=== PATIENT | female | born 1960 | race Caucasian/White ===

== ENCOUNTER 2020-01-25 16:00 | Inpatient (IN) | payer OTHER ==
--- OUTSIDE RECORDS SUMMARY | 2020-01-25 16:03 | XMS REPORT | Clinical Summary ---
:1960 Author Organization [facility] Address [address] [place] [address] Care Team Providers Name Role Phone Asked, Pcp Primary Care Provider Unavailable Allergies Active Allergy Reactions Severity Noted Date Comments Meperidine GI Intolerance 06/12/2019 Medications Medication Sig Dispensed Refills Start Date End Date Status olmesartan (BENICAR) 40 Take 40 mg by 0 Active MG tablet mouth daily. vortioxetine Take 15 mg by 0 Act cliff (TRINTELLIX) 10 mg mouth daily. tablet vitamin E 400 UNIT Take 400 Units 0 Active capsule by mouth daily. cholecalciferol, vitamin Take 1,000 Units 0 Active D3, (VITAMIN D3) 1,000 by mouth daily. unit capsule Bifidobacterium infantis Take 1 capsule 0 Active (ALIGN ORAL) by mouth daily. Active Problems Problem Noted Date Liver lesion 06/13/2019 Encounters Date Type Specialty Care Team Description 06/13/2019 Lab Transplant Dahiana Tatum MD Liver mass 06/13/2019 Office Visit Transplant Dahiana Tatum MD Liver lesi on (Primary Dx) 06/13/2019 Hospital Encounter Radiology Hayde Delgado MD 06/13/2019 Orders Only Transplant Jayshree Hartman Liver mass (Pr imary Dx) DEANDRE Michael 06/13/2019 Orders Only Transplant Jayshree Hartman Liver mass (Pr imary Dx) DEANDRE Michael 06/12/2019 Telephone Transplant Helen Echevarria RN Referral - HCC after 01/24/2019 Social History Tobacco Use Types Packs/Day Years Used Date Never Smoker Sex Assigned at Date Recorded Not on file Job Start Date Occupation Industry Not on file Not on file Not on file Travel History Travel Start Travel End No recent travel history available. Last Filed Vital Signs Vital Sign Reading Time Taken Comments Blood Pressure 139/71 06/13/2019 1:44 PM CDT Pulse 61 06/13/2019 1:44 PM CDT Temperature 36.7 C (98.1 F) 06/13/2019 1:44 PM CDT Respiratory Rate 17 06/13/2019 1:44 PM CDT Oxygen Saturation 98% 06/13/2019 1:44 PM CDT Inhaled Oxygen Concentration - - Weight 78.5 kg (173 lb) 06/13/2019 1:44 PM CDT Height 169.2 cm (5' 6.6") 06/13/2019 1:44 PM CDT Body Mass Index 27.42 06/13/2019 1:44 PM CDT Plan of Treatment Health Maintenance Due Date Last Done Comments CERVICAL CANCER SCREENING 1979 BREAST CANCER SCREENING 2008 COLONOSCOPY SCREENING 2008 SHINGLES VACCINES (#1) 2008 INFLUENZA VACCINE 04/19/2020 Procedures Procedure Name Priority Date/Time Associated Comments Diagnosis HEPATOCELLULAR Routine 06/13/2019 3:15 Results f or this CARCINOMA MARKER PANEL PM CDT proce dure are in the results section. ESTIMATED GFR Routine 06/13/2019 3:15 Results fo r this PM CDT procedure are i n the results section. LIPASE LEVEL Routine 06/13/2019 3:15 Liver mass Results for this PM CDT procedure are i n the results section. AMYLASE LEVEL Routine 06/13/2019 3:15 Liver mass Results fo r this PM CDT procedure are i n the results section. ALPHA FETOPROTEIN Routine 06/13/2019 3:15 Liver mass Result s for this PM CDT procedure are i n the results section. GGT Routine 06/13/2019 3:15 Liver mass Results for this PM CDT procedure are i n the results section. PROTHROMBIN TIME WITH Routine 06/13/2019 3:15 Liver mass Re sults for this INR PM CDT procedure are i n the results section. MAGNESIUM LEVEL Routine 06/13/2019 3:15 Liver mass Results for this PM CDT procedure are i n the results section. COMPREHENSIVE METABOLIC Routine 06/13/2019 3:15 Liver mass Results for this PANEL PM CDT procedure are i n the results section. HC COMPLETE BLD COUNT Routine 06/13/2019 3:15 Liver mass Re sults for this W/AUTO DIFF PM CDT procedure are i n the results section. MRI ABD/PELVIC EXTERNAL Routine 06/06/2019 7:53 Results for this STUDY PM CDT procedure are i n the results section. after 01/24/2019 Results Estimated GFR (06/13/2019 3:15 PM CDT) Pathologist [facility] Estimated GFR 85 mL/min/1.73 [facility] Comment: m2 HOSPITAL Catergory Units Interpretation G1 >=90 Normal or high G2 60-89 Mildly decreased G3a 45-59 Mildly to moderately decreas ed G3b 30-44 Moderately to severely decre ased G4 15-29 Severely decreased G5 <15 Kidney failure The eGFR was calculated using the Chronic Kidney Disea se Epidemiology Collaboration (CKD-EPI) equation. Interpretation is based on recommendations of the National Kidney Foundation-Kidney Disease Outcomes Pavel lity Initiative (NKF-KDOQI) published in 2014. Specimen Plasma specimen Performing Organization Address City/State/Zipcode Phone Number [facility] DEPARTMENT OF PATHOLOGY AND [address] [place] [phone] GENOMIC MEDICINE [address] [address] Hepatocellular carcinoma marker panel (06/13/2019 3:15 PM CDT) Pathologist [facility] Alpha fetoprotein 2 0 - 15 ng/mL [facility] total Alpha fetoprotein <0.5 0.0 - 9.9 % [facility] L3 pct Comment: INTERPRETIVE INFORMATION: Alpha Fetoprotein L3 Percent The uTASWako method is used. Results obtained with dif ferent assay methods or kits cannot be used interchangeably. The AFP-L3 Percent assay is intended as a risk assessm ent for the development of hepatocellular carcinoma in patients wi th chronic liver diseases. Patients with elevated serum AFP-L3 percent should be more intensely evaluated for evidence of hepatocellular car cinoma since elevated values have been shown to be associated with a seven-fold increase in the risk for developing hepatocellular car cinoma within 21 months. For females, the result is not interpretable as a tumor marker. Ifp-igurr-lzvfduz 0.2 0.0 - 7.4 HM [facility] prothrombin Comment: ng/mL INTERPRETIVE INFORMATION: Eqn-rwvjf-nzsguoi Prothrombi n The uTASWako method is used. Results obtained with d ifferent assay methods or kits cannot be used interchangeably. The zkt-pugjr-juxftod prothrombin (DCP) assay is intended as a risk assessment for the development of hepatocellular carci noma in patients with chronic liver diseases. Elevated DCP v alues have been shown to be associated with an increased risk for developing hepatocellular carcinoma. Patients with elevated serum DCP should be more intensely evaluated for evidence of hepatocell ular carcinoma. Performed by [employer], [address] [place] [address] [email or web address], Xavier Hernandez MD - Lab. Director Specimen Serum Performing Organization Address [facility] Phone Number [facility] [address] [place] [address] [facility] [address] [place] [address] Alpha fetoprotein (06/13/2019 3:15 PM CDT) Pathologist [facility] Alpha fetoprotein 2.9 0.0 - 8.3 [place] Comment: ng/mL SABIANIST The Nye 8000 AFP immunoassay was used. HOSPITAL Results obtained with different assay methods or kits should not be used interchangeably and may be differen t. Specimen Serum Performing Organization Address [facility] Phone Number [facility] DEPARTMENT OF PATHOLOGY AND [address] [place] [address] [phone] [address] Prothrombin time with INR (06/13/2019 3:15 PM CDT) Pathologist [facility] Prothrombin time 12.6 11.5 - 14.5 [facility] INR 1.0 [place] Comment: SABIANIST The International Normalized Ratio (INR) is a [facility] HOSPITAL monitoring tool for patients who are stable on oral anticoagulant therapy. An INR of 2.0-3.0 is suggested for deep vein thrombosis/pulmonary embolism. Specimen Blood Performing Organization Address City/[facility] Phone Number [facility] DEPARTMENT OF PATHOLOGY AND [address] [place] [address] [phone] [address] CBC with platelet and differential (06/13/2019 3:15 PM CDT) WBC 7.49 4.50 - 11.00 [facility] RBC 4.82 4.20 - 5.50 [facility] HGB 15.0 12.0 - 16.0 [facility] g/dL [facility] HCT 43.5 37.0 - 47.0 % [facility] MCV 90.2 82.0 - 100.0 [facility] MCH 31.1 27.0 - 34.[address] [facility] MCHC 34.5 31.0 - 37.0 [facility] g/dL [facility] RDW - SD 40.5 37.0 - 55.[address] [facility] MPV 9.9 8.8 - 13.[address] [facility] Platelet count 241 150 - 400 k/uL [facility] Nucleated RBC 0.00 /[address] [facility] Neutrophils 61.6 39.0 - 69.0 % [facility] Lymphocytes 28.8 25.0 - 45.0 % [facility] Monocytes 7.1 0.0 - 10.0 % [facility] Eosinophils 1.7 0.0 - 5.0 % [facility] Basophils 0.3 0.0 - 1.0 % [facility] Immature granulocytes 0.5Comment: 0.0 - 1.0 % [facility] "[facility] granulocytes" (promyelocytes , myelocytes, metamyelocytes ) Specimen Blood Performing Organization Address [facility] Phone Number [facility] DEPARTMENT OF PATHOLOGY AND [address] [place] [address] [phone] [address] Magnesium level (06/13/2019 3:15 PM CDT) Pathologist Sig nature Magnesium 2.0 1.6 - 2.4 mg/dL [facility] Specimen Plasma specimen Performing Organization Address [facility] Phone Number [facility] DEPARTMENT OF PATHOLOGY AND [address] [place] [address] [phone] [address] Lipase level (06/13/2019 3:15 PM CDT) Pathologist Sig nature Lipase 52 13 - 60 U/L [facility] Specimen Plasma specimen Performing Organization Address [facility] Phone Number [facility] DEPARTMENT OF PATHOLOGY AND [address] [place] [address] [phone] [address] GGT (06/13/2019 3:15 PM CDT) Pathologist Sig nature GGT 15 0 - 39 U/L [facility] Specimen Plasma specimen Performing Organization Address City/[facility] Phone Number [facility] DEPARTMENT OF PATHOLOGY AND [address] [place] [address] [phone] [address] Amylase level (06/13/2019 3:15 PM CDT) Pathologist Sig nature Amylase 50 28 - 100 U/L [facility] Specimen Plasma specimen Performing Organization Address City/[facility] Phone Number [facility] DEPARTMENT OF PATHOLOGY AND [address] [place] [address] [phone] [address] Comprehensive metabolic panel (06/13/2019 3:15 PM CDT) Sodium 142 135 - 148 [facility] mEq/L [facility] Potassium 3.7 3.5 - 5.0 [facility] mEq/L [facility] Chloride 101 98 - 112 [facility] mEq/L [facility] CO2 29 24 - 31 mEq/L [facility] Anion gap 12@ANIO 7 - 15 mEq/L [facility] BUN 15 8 - 23 mg/dL [facility] Creatinine 0.76 0.50 - 0.90 [facility] mg/dL [facility] Glucose 97 65 - 99 mg/dL [facility] Calcium 9.7 8.8 - 10.2 [facility] mg/dL [facility] Protein 6.9 6.3 - 8.3 [facility] Comment: g/dL HOSPITAL [place] 4.6-7.0 g/dL 1 week 4.4-7.6 g/dL 7 months-1year 5.1-7.3 g/dL 1-2 years 5.6-7.5 g/dL >3 years 6.0-8.0 g/dL 18-150 6.3-8.3 g/dL Albumin 3.8 3.5 - 5.0 [facility] g/dL [facility] A/G ratio 1.2 0.7 - 3.8 [facility] Alkaline phosphatase 57 35 - 104 U/L [facility] AST 25 10 - 35 U/L [facility] ALT 30 5 - 50 U/L [facility] Total bilirubin 0.4 0.0 - 1.2 [facility] mg/dL [facility] Specimen Plasma specimen Performing Organization Address City/[facility] Phone Number [facility] DEPARTMENT OF PATHOLOGY AND [address] [place], [place] [phone] [facility] [address] [place] [address] MRI Abd/Pelvic External Study (06/06/2019 7:53 PM CDT) Specimen Narrative Performed At This exam was not acquired at a [facility] facility and has not been [facility] interpreted by a [facility] Provider. T he exam was imported into our imaging system for comparisons purposes. 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
[2020-01-25] MEDS ORDERED: MORPHINE 2 MG/ML SYR ONE (16:22)
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
--- NOTE | 2020-01-25 17:03 | RAD REPORT ---
EXAM DESCRIPTION: RAD - Hip Right 2 View - 01/25/2020 4:52 pm CLINICAL HISTORY: Right hip pain FINDINGS: Mildly to moderately displaced subcapital femoral fracture. No dislocation
--- NOTE | 2020-01-25 17:33 | ER ---
Nurse's Notes [facility] Name: Nori Pelletier Age: 59 yrs Sex: Female : 1960 Arrival Date: 01/25/2020 Time: 16:04 Bed 5 Private MD: Diagnosis: Subcapital right hip fracture;Fall on same level from slipping, tripping and stumbling Presentation: 01/24 16:05 Chief complaint: EMS states: FALL CLIMBING OUT OF ABOVE GROUND POOL. Coronavirus bp screen: Proceed with normal triage. Ebola Screen: No symptoms or risks identified at this time. Initial Sepsis Screen: Does the patient meet any 2 criteria? No. Patient's initial sepsis screen is negative. Does the patient have a suspected source of infection? No. Patient's initial sepsis screen is negative. Risk Assessment: Do you want to hurt yourself or someone else? Patient reports no desire to harm self or others. Onset of symptoms was January 25, 2020 at 15:00. 16:05 Method Of Arrival: EMS: [facility] bp 16:05 Acuity: SACHIN 3 bp Triage Assessment: 16:08 General: Appears in no apparent distress. comfortable, Behavior is cooperative, bp appropriate for age, anxious. Pain: Complains of pain in right hip. EENT: No deficits noted. Neuro: No deficits noted. Cardiovascular: No deficits noted. Respiratory: No deficits noted. GI: No signs and/or symptoms were reported involving the gastrointestinal system. : No signs and/or symptoms were reported regarding the genitourinary system. Derm: No deficits noted. Musculoskeletal: Circulation, motion, and sensation intact. Reports pain in right hip. Historical: - Allergies: 16:08 No Known Allergies; bp - Home Meds: 16:08 Unable to obtain [Active]; bp - PMHx: 16:08 Hypertension; bp - Immunization history:: Adult Immunizations up to date. - Social history:: Smoking status: unknown. Screenin:09 Abuse screen: Denies threats or abuse. Denies injuries from another. Nutritional bp screening: No deficits noted. Tuberculosis screening: No symptoms or risk factors identified. Fall Risk None identified. Assessment: 16:09 General: SEE TRIAGE NOTE. bp 17:13 Reassessment: ALL CURRENT ORDERS COMPLETED. XRAY STATES FEMUR FX. DISPO PENDING. bp 18:06 Reassessment: Pt to Xray. ca1 18:40 Reassessment: PT RETURNED FROM RADIOLOGY. bp 19:29 General: Appears uncomfortable, Behavior is appropriate for age. Pain: Complains of ea pain in right leg and right hip. Neuro: Level of Consciousness is awake, alert, obeys commands, Oriented to person, place, time, situation. Respiratory: Airway is patent Respiratory effort is even, unlabored, Respiratory pattern is regular, symmetrical. Derm: Skin is pink, warm \T\ dry. 19:39 Reassessment: Report called to Carol CARRERA. ea Vital Signs: 16:05 BP 168 / 76; Pulse 70; Resp 16; Temp 98.2; Pulse Ox 100% ; Weight 77.11 kg; Height 5 bp ft. 6 in. (167.64 cm); 16:27 BP 168 / 76; Pulse 66; Resp 16; Pulse Ox 98% ; bp 17:12 BP 169 / 83; Pulse 69; Resp 16; Pulse Ox 98% ; bp 18:00 BP 177 / 85; Pulse 75; Resp 16 S; Pulse Ox 99% on R/A; ca1 19:40 BP 149 / 79; Pulse 77; Resp 18; Pulse Ox 95% ; ea 16:05 Body Mass Index 27.44 (77.11 kg, 167.64 cm) bp ED Course: 16:04 Patient arrived in ED. am2 16:04 Zaid Cabrera, DEANDRE is Primary Nurse. bp 16:06 Jimi Johnson PA is PHCP. cp 16:06 Jimi Estrella MD is Attending Physician. cp 16:06 Triage completed. bp 16:08 Arm band placed on. bp 16:09 Patient has correct armband on for positive identification. Bed in low position. Call bp light in reach. Side rails up X2. 16:15 Inserted saline lock: 22 gauge in right forearm, using aseptic technique. bp 16:53 XRAY Hip RIGHT 2 view In Process Unspecified. EDMS 16:53 Pelvis XRAY In Process Unspecified. EDMS 17:[address] Skaggs called and connected with Jimi BACA for patient consultation. eb 17:29 Harpal Charles DO is Hospitalizing Provider. cp 17:39 No provider procedures requiring assistance completed. Granda cath inserted, using ca1 sterile technique, 18 Fr., by ny, balloon inflated, to gravity drainage, urine specimen collected. 19:04 Patient admitted, IV remains in place. ca1 Administered Medications: 16:20 Drug: morphine 2 mg Route: IVP; Site: right forearm; bp 17:12 Follow up: Response: Pain is decreased bp 18:41 Drug: morphine 2 mg Route: IVP; Site: right forearm; bp 18:41 Follow up: Response: Pain is decreased bp Outcome: 17:31 Decision to Hospitalize by Provider. daisy 19:29 Instructed on the need for admit, Demonstrated understanding of instructions. eloy 19:38 Admitted to Med/surg accompanied by tech, room 209, with chart, Report called to Carol lyons RN 19:38 Condition: stable 19:53 Patient left the ED. mw2 Signatures: Dispatcher [employer] EDMS Jimi Johnson PA PA cp Moreno, Amanda am2 Sheri Kee, RN RN Zaid Alonso RN RN Anup Figueroa mw2 Radha Osman Cheryl RN RN ca1
--- NOTE | 2020-01-25 17:33 | EDPHYS ---
Physician Documentation [facility] Name: Nori Pelletier Age: 59 yrs Sex: Female : 1960 Arrival Date: 01/25/2020 Time: 16:04 Bed 5 Private MD: ED Physician Jimi Estrella HPI: 01/24 16:06 This 59 yrs old Female presents to ER via Unassigned with complaints of Fall cp Injury, Leg Pain. 16:06 Details of fall: The patient fell from an upright position, while standing. Onset: The cp symptoms/episode began/occurred just prior to arrival. Associated injuries: The patient sustained right hip. Severity of symptoms: in the emergency department the symptoms are unchanged, despite EMS interventions. Historical: - Allergies: 16:08 No Known Allergies; bp - Home Meds: 16:08 Unable to obtain [Active]; bp - PMHx: 16:08 Hypertension; bp - Immunization history:: Adult Immunizations up to date. - Social history:: Smoking status: unknown. ROS: 16:09 Eyes: Negative for injury, pain, redness, and discharge. cp 16:09 Constitutional: Negative for fever. 16:09 Neck: Negative for pain with movement, pain at rest, tenderness, bony tenderness. 16:09 Cardiovascular: Negative for chest pain, palpitations. 16:09 Respiratory: Negative for cough, shortness of breath, wheezing. 16:09 Abdomen/GI: Negative for abdominal pain, nausea, vomiting, and diarrhea. 16:09 Back: Negative for pain at rest, pain with movement, radiated pain. 16:09 MS/extremity: Positive for pain, tenderness, of the right hip. 16:09 Neuro: Negative for altered mental status, dizziness, headache, loss of consciousness, syncope. 16:09 All other systems are negative. Exam: 16:10 Head/Face: Normocephalic, atraumatic. cp 16:10 Constitutional: The patient appears in no acute distress, alert, awake, non-diaphoretic, non-toxic, well developed, well nourished, uncomfortable. 16:10 Eyes: Periorbital structures: appear normal, Conjunctiva: normal, no exudate, no injection, Lids and lashes: appear normal, bilaterally. 16:10 ENT: External ear(s): are unremarkable, Nose: is normal, Mouth: is normal, Posterior pharynx: Airway: no evidence of obstruction, patent. 16:10 Neck: C-spine: vertebral tenderness, is not appreciated, crepitus, is not appreciated, ROM/movement: is normal, is supple, without pain, no range of motions limitations, no nuchal rigidity. 16:10 Chest/axilla: Inspection: normal, Palpation: is normal, no crepitus, no tenderness. 16:10 Cardiovascular: Rate: normal, Rhythm: regular. 16:10 Respiratory: the patient does not display signs of respiratory distress, Respirations: normal, no use of accessory muscles, no retractions, labored breathing, is not present. 16:10 Abdomen/GI: Inspection: abdomen appears normal, Bowel sounds: active, all quadrants, Palpation: abdomen is soft and non-tender, in all quadrants. 16:10 Back: vertebral tenderness, is not appreciated. 16:10 Musculoskeletal/extremity: Perfusion: the extremity is normally perfused throughout, the right leg Sensation intact. Joints: All joints are normal except the right hip displays limited range of motion, painful range of motion, tenderness, Weight bearing: is unable to bear weight. 16:10 Neuro: Orientation: to person, place \T\ time. Mentation: is normal. 17:54 ECG was reviewed by the Attending Physician. cp Vital Signs: 16:05 BP 168 / 76; Pulse 70; Resp 16; Temp 98.2; Pulse Ox 100% ; Weight 77.11 kg; Height 5 bp ft. 6 in. (167.64 cm); 16:27 BP 168 / 76; Pulse 66; Resp 16; Pulse Ox 98% ; bp 17:12 BP 169 / 83; Pulse 69; Resp 16; Pulse Ox 98% ; bp 18:00 BP 177 / 85; Pulse 75; Resp 16 S; Pulse Ox 99% on R/A; ca1 19:40 BP 149 / 79; Pulse 77; Resp 18; Pulse Ox 95% ; ea 16:05 Body Mass Index 27.44 (77.11 kg, 167.64 cm) bp MDM: 16:06 Patient medically screened. francis 16:13 Differential diagnosis: contusion, fracture, multiple trauma, dislocation. cp 17:20 Data reviewed: vital signs, nurses notes, radiologic studies, plain films, I have cp discussed the patient's presentation/case with the attending Emergency Department Physician; and as a result, I will admit patient. 17:22 Physician consultation: Kelvin Skaggs MD was called at 17:20, was contacted at 17:20, cp regarding consult, patient's condition, would like admission per Dr. Harpal Charles DO. 17:28 Physician consultation: Harpal Charles DO was called at 17:25, was contacted at 17:25, cp regarding admission, to the medical/surgical unit. patient's condition. 01/24 17:18 Order name: Basic Metabolic Panel cp 05 17:18 Order name: CBC with Diff cp 01/24 17:18 Order name: LFT's cp 01/24 17:18 Order name: PT-INR cp 05 16:08 Order name: XRAY Hip RIGHT 2 view; Complete Time: 17:29 cp 05 16:08 Order name: Pelvis XRAY; Complete Time: 17:29 cp 01/24 17:18 Order name: Troponin (emerg Dept Use Only) cp 01/24 17:18 Order name: XRAY Chest (1 view) cp 01/24 17:21 Order name: Urine Microscopic Only cp 01/24 17:21 Order name: Ptt, Activated cp 01/24 17:52 Order name: Urine Dipstick--Ancillary (enter results) eb 01/24 18:35 Order name: PTT, Activated Partial Thromb EDMS 01/24 16:08 Order name: IV; Complete Time: 16:25 cp 05/08 17:18 Order name: EKG; Complete Time: 17:19 cp 01/24 17:18 Order name: Cardiac monitoring; Complete Time: 17:31 cp 01/24 17:18 Order name: EKG - Nurse/Tech; Complete Time: 17:52 cp 01/24 17:18 Order name: IV Saline Lock; Complete Time: 17:31 cp 01/24 17:18 Order name: Labs collected and sent; Complete Time: 18:08 cp 01/24 17:18 Order name: O2 Per Protocol; Complete Time: 17:31 cp 05 17:18 Order name: O2 Sat Monitoring; Complete Time: 17:31 cp 08 17:18 Order name: XRAY Femur RIGHT cp 01/24 17:21 Order name: Granda; Complete Time: 17:38 cp 05 17:21 Order name: Urine Dipstick-Ancillary (obtain specimen); Complete Time: 17:52 cp 01/24 19:04 Order name: RAD EDMS 01/24 19:06 Order name: RAD EDKS EC:54 Rate is 64 beats/min. Rhythm is regular. AK interval is normal. QRS interval is normal. cp QT interval is normal. Interpreted by me. Reviewed by me. Administered Medications: 16:20 Drug: morphine 2 mg Route: IVP; Site: right forearm; bp 17:12 Follow up: Response: Pain is decreased bp 18:41 Drug: morphine 2 mg Route: IVP; Site: right forearm; bp 18:41 Follow up: Response: Pain is decreased bp Disposition: 01/25/20 17:31 Hospitalization ordered by Harpal Charles for Inpatient Admission. Preliminary diagnosis are Subcapital right hip fracture, Fall on same level from slipping, tripping and stumbling. - Bed requested for Telemetry/MedSurg (Inpatient). - Status is Inpatient Admission. mw2 - Condition is Stable. - Problem is new. - Symptoms have improved. Addendum: 01/28/2020 20:14 Co-signature as Attending Physician, Jimi Estrella MD I agree with the assessment and c noel plan of care. Signatures: Dispatcher [employer] EDKS Jimi Estrella MD MD cha Attema, Lee, SUPERVISOR [employer]ING [employer] DEPARTMENT-C SUPERVISOR [employer]EPING [employer] DEPARTMENT-Cla1 Jimi Johnson PA PA cp Zaid Cabrera, RN RN Anup Wesley mw2 Radha Osman Corrections: (The following items were deleted from the chart) 01/24 17:31 17:31 Hospitalization Ordered by Harpal Charles DO for Inpatient Admission. Preliminary cp diagnosis is Subcapital right hip fracture. Bed requested for Telemetry/MedSurg (Inpatient). Status is Inpatient Admission. Condition is Stable. Problem is new. Symptoms have improved. cp 17:32 17:19 MAGNESIUM+C.LAB.BRZ ordered. EDKS EDMS 17:33 17:19 PROBNP+C.LAB.BRZ ordered. EDKS EDMS 18:11 17:31 01/25/2020 17:31 Hospitalization Ordered by Harpal Charles DO for Inpatient eb Admission. Preliminary diagnosis is Subcapital right hip fracture; Fall on same level from slipping, tripping and stumbling. Bed requested for Telemetry/MedSurg (Inpatient). Status is Inpatient Admission. Condition is Stable. Problem is new. Symptoms have improved. cp 19:53 18:11 01/25/2020 17:31 Hospitalization Ordered by Harpal Charles DO for Inpatient mw2 Admission. Preliminary diagnosis is Subcapital right hip fracture; Fall on same level from slipping, tripping and stumbling. Bed requested for Telemetry/MedSurg (Inpatient). Status is Inpatient Admission. Condition is Stable. Problem is new. Symptoms have improved. eb
[2020-01-25] MEDS ORDERED: ONDANSETRON 4 MG/2 ML VIAL IV PRN (17:57)
[2020-01-25] MEDS ORDERED: ACETAMINOPHEN 500 MG TAB PO PRN (17:57)
--- NOTE | 2020-01-25 18:10 | P.HP ---
Certification for Inpatient Patient admitted to: Inpatient With expected LOS: >2 Midnights Patient will require the following post-hospital care: None Practitioner: I am a practitioner with admitting privileges, knowledge of patient current condition, hospital course, and medical plan of care. Services: Services provided to patient in accordance with Admission requirements found in Title 42 Section 412.3 of the Code of Federal Regulations <Wild Mares - Last Filed: 01/25/20 18:02> Patient History Date of Service: 01/25/20 Primary Care Provider: Dr. Orozco Reason for admission: Right hip fracture History of Present Illness: 59-year-old female with history of hypertension depression presents the emergency department status post fall from a water slide. During her evaluation in the emergency department patient was found to have a mild to moderately displaced right subcapital femoral fracture. ED provider consulted with orthopedics who wished to have the patient admitted to the hospital service for further evaluation management. Orthopedic will consult. When I saw the patient in the emergency department she is resting in the stretcher, appeared comfortable. Vital signs within normal limits. Will admit the patient for further evaluation and management. Home medications list reviewed: Yes - Past Medical/Surgical History Has patient received pneumonia vaccine in the past: No Diabetic: No -: Hypertension -: Depression Past Surgical History: Reviewed- Non-Contributory Psychosocial/ Personal History: Patient lives at home with her - Family History Family History: Reviewed- Non-Contributory - Social History Smoking Status: Never smoker Alcohol use: Yes CD- Drugs: No Caffeine use: Yes Place of Residence: Home <Wild Mares - Last Filed: 01/25/20 18:02> Date of Service: 01/26/20 History of Present Illness: Patient did not have a syncopal episode. Patient was getting out of the water slide after she has slid down and when she went to feel her legs down she poorly estimated where the ground was ran she fell backwards and landed on her right hip. She was brought into the hospital where she was found have a right subcapital femoral fracture/hip fracture. <Isamar Sands - Last Filed: 01/26/20 06:47> Review of Systems General: Unremarkable Eyes: Unremarkable ENT: Unremarkable Respiratory: Unremarkable Cardiovascular: Unremarkable Gastrointestinal: Unremarkable Genitourinary: Unremarkable Musculoskeletal: Other (Right hip pain) Integumentary: As per HPI Neurological: Unremarkable Lymphatics: Unremarkable <SuzanWild - Last Filed: 01/25/20 18:02> 10-point ROS is otherwise unremarkable <Lorena Sandsmaximino Halley - Last Filed: 01/26/20 06:47> Physical Examination - Physical Exam General: Alert, In no apparent distress, Oriented x3 HEENT: Atraumatic, Normocephalic Neck: Supple Respiratory: Clear to auscultation bilaterally, Normal air movement Cardiovascular: No edema Capillary refill: <2 Seconds Gastrointestinal: Normal bowel sounds, Soft and benign Musculoskeletal: Swelling (Present to right hip) Integumentary: No breakdown, No significant lesion Neurological: Normal speech, Normal tone - Studies Laboratory Data (last 24 hrs) 01/25/20 17:18: Magnesium Cancelled <SuzanWild - Last Filed: 01/25/20 18:02> - Vital Signs Temperature: 98.6 F Blood Pressure: 140/80 Pulse: 70 Respirations: 18 Pulse Ox (%): 96 - Studies Laboratory Data (last 24 hrs) 01/25/20 17:21: APTT Cancelled <Indira Sandsdavid Halley - Last Filed: 01/26/20 06:47> Assessment and Plan - Plan Assessment Mild to moderately displaced right subcapital femoral fracture without dislocation Hypertension Depression Plan Mild to moderately displaced right subcapital femoral fracture without dislocation- orthopedics has been consulted on this case and will manage the hip fracture surgically. Patient to remain NPO after midnight. Pain and nausea medications ordered as needed. Granda catheter in place. Will await further input from orthopedics for management of this condition. Patient with only history of hypertension which appears to be relatively well controlled, will obtain EKG and chest x-ray in the morning. Hypertension- will obtain and continue patient's home medications. Will continue to monitor patient's blood pressure throughout this hospitalization. Depression- will obtain and continue patient's home medications. Discharge Plan: Home Plan to discharge in: 48 Hours - Advance Directives Does patient have a Living Will: No Does patient have a Durable POA for Healthcare: No - Code Status/Comfort Care Code Status Assessed: Yes (Patient is full code) Critical Care: No Time Spent Managing Pts Care (In Minutes): 55 <Wild Mares - Last Filed: 01/25/20 18:02> - Plan Chart reviewed. Patient seen and examined. Agree with above findings. Orthopedics Consulted. Patient evaluated medically and EKG with no indication of acute abnormality. Patient's performance status is really good. Patient is very active and has no issues with chest pain or shortness of breath. EKG does not indicate an underlying cardiac disease. Patient is low risk for any cardiopulmonary complications in the perioperative period. <Isamar Sands - Last Filed: 01/26/20 06:47>
[2020-01-25 18:22] LABS: Urine Blood NEGATIVE (NEG); Urine Glucose NEGATIVE (NEG); Urine Protein NEGATIVE (NEG); Urine pH 7.5 (5.0-7.0)
[2020-01-25 18:22] LABS: Urine Amorphous Sediment 1+ /HPF (NONE SEEN); Urine Bacteria NONE SEEN /HPF (<20); Urine Culture Reflex Order NOT NEEDED; Urine RBC NONE SEEN /HPF (NONE SEEN)
[2020-01-25 18:29] LABS: Absolute Lymphocytes (CBC) 1.7 K/uL (0.7-4.9); Basophils % 0.2 % (0-1.3); Hematocrit 45.5 % (36.0-45.0); Lymphocytes % 12.6 % (15.3-44.8); MPV 8.3 fL (7.6-11.3)
[2020-01-25 18:33] LABS: Protime INR 0.97
[2020-01-25 18:42] LABS: ALT/SGPT 30 U/L (12-78); AST/SGOT 17 U/L (15-37); Albumin 3.6 g/dL (3.4-5.0); Alkaline Phosphatase 71 U/L (45-117); BUN Blood Urea Nitrogen 12 mg/dL (7-18); Bicarbonate 32 mmol/L (21-32); Bilirubin Direct < 0.1 mg/dL (0-0.2); Bilirubin Total 0.2 mg/dL (0.2-1.0); Glucose Level 113 mg/dL (74-106); Potassium 3.6 mmol/L (3.5-5.1); Protein, Total 7.4 g/dL (6.4-8.2); Sodium Level 143 mmol/L (136-145); Troponin (Emerg Dept Use Only) < 0.02 ng/mL (0.0-0.045)
--- NOTE | 2020-01-25 19:02 | RAD REPORT ---
EXAM DESCRIPTION: Kandi Single View01/25/2020 6:36 pm CLINICAL HISTORY: Chest pain COMPARISON: none FINDINGS: The lungs appear clear of acute infiltrate. The heart is normal size IMPRESSION: No acute abnormalities displayed
--- NOTE | 2020-01-25 19:04 | RAD REPORT ---
EXAM DESCRIPTION: RAD - Femur Right - 01/25/2020 6:36 pm CLINICAL HISTORY: Right hip pain FINDINGS: Mildly to moderately displaced subcapital femoral fracture. No additional fracture seen
[2020-01-25 20:42] VITALS: BMI 27.4
[2020-01-25] MEDS: MORPHINE 2 MG/ML SYR IV PRN (23:39)
[2020-01-26 04:55] LABS: ALT/SGPT 24 U/L (12-78); AST/SGOT 13 U/L (15-37); Alkaline Phosphatase 53 U/L (45-117); BUN Blood Urea Nitrogen 11 mg/dL (7-18); Bicarbonate 24 mmol/L (21-32); Bilirubin Total 0.6 mg/dL (0.2-1.0); Glucose Level 113 mg/dL (74-106); Magnesium 1.7 mg/dL (1.8-2.4); Potassium 3.6 mmol/L (3.5-5.1); Protein, Total 6.3 g/dL (6.4-8.2); Sodium Level 140 mmol/L (136-145)
[2020-01-26] MEDS ORDERED: NA CHLORIDE 0.9% 250 ML ONE (05:28)
[2020-01-26] MEDS: MORPHINE 2 MG/ML SYR IV PRN (05:40)
[2020-01-26 06:11] LABS: Absolute Lymphocytes (CBC) 2.1 K/uL (0.7-4.9); Basophils % 0.5 % (0-1.3); Hematocrit 40.8 % (36.0-45.0); Lymphocytes % 16.7 % (15.3-44.8); MPV 8.1 fL (7.6-11.3); RBC Red Blood Cell Count 4.71 M/uL (3.86-4.86)
--- NOTE | 2020-01-26 06:51 | P.PN ---
Subjective Date of Service: 01/26/20 Patient doing clinically well with no new complaints. Anticipating surgery today. Patient doing well clinically. Review of Systems 10-point ROS is otherwise unremarkable Physical Examination - Vital Signs Temperature: 98.6 F Blood Pressure: 140/80 Pulse: 70 Respirations: 18 Pulse Ox (%): 96 - Physical Exam General: Alert, In no apparent distress, Oriented x3 Respiratory: Clear to auscultation bilaterally, Normal air movement Cardiovascular: Regular rate/rhythm, Normal S1 S2, No murmurs Gastrointestinal: Normal bowel sounds, Soft and benign, Non-distended, No tenderness Musculoskeletal: No clubbing, No swelling, Tenderness (Right hip) Neurological: Abnormal strength - Studies Laboratory Data (last 24 hrs) 01/25/20 17:21: APTT Cancelled Medications List Reviewed: Yes Assessment & Plan - Problems (Diagnosis) (1) Subcapital fracture of right hip Current Visit: Yes Status: Acute (2) Hypertension Current Visit: Yes Status: Acute - Plan -Patient evaluated medically and EKG with no indication of acute abnormality. Patient's performance status is really good. Patient is very active and has no issues with chest pain or shortness of breath. EKG does not indicate an underlying cardiac disease. Patient is low risk for any cardiopulmonary complications in the perioperative period. -continue pain control -physical therapy evaluation postoperatively -DVT prophylaxis -strict blood pressure control - Advance Directives Does patient have a Living Will: No Does patient have a Durable POA for Healthcare: No
[2020-01-26] MEDS ORDERED: KCL 20 MEQ/100 mL IVPB 20 MEQ/100 ML BAG IV SCH (07:00)
[2020-01-26] MEDS: VALSARTAN 160 MG TAB PO SCH (08:46)
[2020-01-26] MEDS ORDERED: MAGNESIUM SULFATE 1 gm IVPB 1 GM/100 ML BAG IV ONE (09:00)
[2020-01-26] MEDS ORDERED: Ringers Lactate 1,000 ML IV ONE (10:16)
--- NOTE | 2020-01-26 11:10 | CON ---
Date of Consultation: 01/26/2020 Reason For Consultation: Right hip pain. History Of Present Illness: Ms. Pelletier is a 59-year-old female, who presented to the ER after sustai rachel a fall from a water slide. She reports subsequent pain to her right hip and inability to bear w eight and she was brought to the ER and had x-rays which demonstrated a valgus impacted femoral neck fracture. Prior to the fall, the patient did not use any assist devices. Patient denies any other m usculoskeletal complaints at this time. Review of Systems: As above, otherwise negative. Past Medical History: Includes hypertension and depression. Past Surgical History: Noncontributory. Family History: Reviewed and noncontributory. Social History: Denies tobacco use. Reports occasional alcohol use. Denies drug use. Lives at [facility] with her . Medications: Per medication reconciliation. Allergies: NO KNOWN DRUG ALLERGIES. Physical Examination: General: No apparent distress. HEENT: Normocephalic, atraumatic. Neck: Supple. Cardiovascular: Brisk cap refill to all digits. Chest: Nonlabored breathing. Abdomen: Nondistended. Psychiatric: Responsive to exam. Musculoskeletal: No pain with range of motion of the bilateral upper extremities. Left lower extrem ity, functional range of motion without pain. No gross deformities. No obvious dislocations. Right lower extremity, pain with range of motion of the right hip. Tenderness to palpation of the right h ip. No tenderness to palpation of the right knee, tibia, foot, or ankle. Positive firing of EHL, FH L, gastrocsoleus complex, tibialis anterior. Sensation grossly intact to the dorsal and plantar surf eloise of her right foot. X-rays: The x-rays of the right hip demonstrate a valgus impacted minimally displaced right femoral neck fracture. Assessment And Plan: Nori is a 59-year-old female with a right minimally displaced femoral neck f racture. I discussed with the patient at length risks and benefits associated with operative and non operative treatment. She expressed understanding and elected to proceed with operative treatment. G iven unstable fracture pattern, we will proceed with closed reduction and percutaneous pinning using cannulated screws. I discussed with the patient at length risks and benefits associated with the ope rative procedure and she expressed understanding. We will proceed with surgery later this morning. She has been evaluated by the hospital service and cleared to proceed with surgery. CV/MODL Voice ID: [id number] Report ID: [id number]
[2020-01-26] MEDS ORDERED: CEFAZOLIN/SWI 2gm 2 GM/20 ML SYR IV SCH (11:30)
--- NOTE | 2020-01-26 12:18 | EKG ---
Test Date: 2020-01-25 Test Time: 17:52:58 Mower Sharpener: IFRAH MEASUREMENT RESULTS: Intervals: Rate: 64 MA: 154 QRSD: 94 QT: 406 QTc: 418 [place]: P: 55 MA: 154 QRS: 64 T: 46 INTERPRETIVE STATEMENTS: Normal sinus rhythm with sinus arrhythmia ST abnormality, possible digitalis effect Abnormal ECG No previous ECG available for comparison Electronically Signed On 01-26-20 12:17:45 CDT by Daniel Dodge
[2020-01-26] MEDS: BUPIVACA 0.5%/EPI 0.0005%/PF 30 ML VIAL ONE ×2 (12:21→12:40)
[2020-01-26] MEDS: HYDROMORPHONE HCL 2 MG/ML inj ONE ×4 (12:58→13:15)
--- NOTE | 2020-01-26 13:00 | P.BOP ---
Preoperative diagnosis: right femoral neck fracture Postoperative diagnosis: same Primary procedure: surgical fixation of femoral neck fracture with percutaneous screws Blade Groover: NONE,NONE Estimated blood loss: 20 cc Specimen: none Findings: see dictation Anesthesia: General Complications: None Drain(s): Urinary catheter Implants: 3 - 6.5 mm Cannulated screws Fluids & blood products: per anesthesia record Transferred to: Recovery Room Condition: Good
[2020-01-26] MEDS ORDERED: TRAMADOL HCL 50 MG TAB PO PRN (13:08)
[2020-01-26] MEDS ORDERED: DOCUSATE NA 100 MG CAP PO PRN (13:08)
[2020-01-26] MEDS ORDERED: HYDROMORPHONE HCL 1 MG/ML INJ ONE (13:36)
[2020-01-26 13:37] LABS: Hematocrit 41.3 % (36.0-45.0)
--- NOTE | 2020-01-26 14:13 | RAD REPORT ---
EXAM DESCRIPTION: RAD - Hip Right 2 View - 01/26/2020 1:49 pm CLINICAL HISTORY: post op COMPARISON: Hip Right 2 View dated 01/25/2020 FINDINGS: AP and cross-table lateral views were obtained. Surgical hardware has been placed across the subcapital neck fracture previously detailed. Bones and hardware are in good position. No suspicious or unexpected finding. IMPRESSION: Right proximal femur fracture repair findings as detailed.
[2020-01-26 16:10] LABS: Magnesium 2.1 mg/dL (1.8-2.4); Potassium 4.1 mmol/L (3.5-5.1)
--- NOTE | 2020-01-26 17:47 | RAD REPORT ---
EXAM DESCRIPTION: RAD - Hip In Or - 01/26/2020 5:16 pm FINDINGS: There were 31 portable intraoperative C-arm views obtained during fluoroscopic assisted pl acement of fracture fixation hardware. Images show stepwise placement of the hardware. No suspicious or unexpected finding. Fluoro time was 1.5 minutes.
[2020-01-26] MEDS: CEFAZOLIN/SWI 2gm 2 GM/20 ML SYR IVP SCH (17:59)
[2020-01-27] MEDS: CEFAZOLIN/SWI 2gm 2 GM/20 ML SYR IVP SCH ×2 (00:02→05:46)
--- NOTE | 2020-01-27 00:30 | OP ---
Date of Procedure: 01/26/2020 Surgeon: Kelvin Skaggs MD Preoperative Diagnosis: Right femoral neck fracture. Postoperative Diagnosis: Right femoral neck fracture. Procedure Performed: Surgical fixation of right femoral neck fracture with percutaneous screw fixati on. Anesthesia: General LMA. Fluids: Per Anesthesia. Estimated Blood Loss: 20 cc. Implants: Three 6.5 mm cannulated screws. Complications: None. Indication For Procedure: Nori is a 59-year-old female who presented to the ER after sustaining a fall onto her right side with subsequent pain and inability to bear weight and x-rays demonstrated a minimally displaced right femoral neck fracture. I discussed with the patient and her in [facility] the risks and benefits associated with operative and nonoperative treatment. They expressed und erstanding and elected to proceed with operative treatment. Description Of Procedure: After informed consent was obtained, patient was identified in the preoper ative holding area. The right lower extremity was marked. The patient was then brought back to the operating room, transferred to the operating room table in supine fashion and placed under general LM A anesthesia. She was placed on a fracture table with her extremities well padded. Preoperatively, the right hip was evaluated using fluoroscopy demonstrating adequate reduction of the fracture. The right lower extremity was then prepped and draped in usual sterile fashion. A time-out was initiated . The correct patient and procedure were confirmed and identified. The patient did receive preopera tive prophylactic antibiotics. A stab incision was made over the lateral thigh in line with the cent ral inferior screw placement. Guidepin was then placed over the lateral proximal aspect of the proxi mal femur above the level of the lesser trochanter and placed in a center to center position on inver mojgan inferior aspect of the femoral head and neck. An inverted triangle configuration was then used a nd 2 other guidepins were replaced in a superior anterior position and the superior posterior positio n in the femoral neck and head. The ends of the pins did not appear to go past the articular surface . This was confirmed on both AP and lateral views. After the pins were placed and were confirmed in proper position, they were measured with size 80 mm screw in the center and anterior screws and size 75 mm screw in the posterior superior position. Lateral cortex was drilled and screws were placed w ith good overall bite within the femoral head and proximal femur. There was good overall alignment o f the fracture as well as good placement of the screws. Screws did not appear to pass through the ar ticular surface and checked in both AP and lateral views. Guidepins were removed. The wounds were t hen irrigated thoroughly with normal saline. Subcutaneous tissue was approximated using a 2-0 Vicryl . Skin was approximated using ema. Patient was awakened and transferred to PACU in stable condi tion. Postoperative Plan: Ms. Pelletier will be touchdown weightbearing on her right lower extremity. Physic al Therapy will be consulted to aid with normalization and Dr. Charles will continue to manage the pat ient medically. CV/MODL Voice ID: [id number] Report ID: [id number]
[2020-01-27] MEDS: MORPHINE 2 MG/ML SYR IV PRN ×2 (04:34→14:12)
[2020-01-27 05:53] LABS: Absolute Lymphocytes (CBC) 1.7 K/uL (0.7-4.9); Basophils % 0.3 % (0-1.3); Hematocrit 40.6 % (36.0-45.0); Lymphocytes % 12.9 % (15.3-44.8); MPV 7.9 fL (7.6-11.3); RBC Red Blood Cell Count 4.61 M/uL (3.86-4.86)
[2020-01-27 06:06] LABS: ALT/SGPT 20 U/L (12-78); AST/SGOT 9 U/L (15-37); Albumin 2.8 g/dL (3.4-5.0); Alkaline Phosphatase 49 U/L (45-117); BUN Blood Urea Nitrogen 12 mg/dL (7-18); Bicarbonate 27 mmol/L (21-32); Bilirubin Total 0.5 mg/dL (0.2-1.0); Glucose Level 105 mg/dL (74-106); Magnesium 2.1 mg/dL (1.8-2.4); Protein, Total 6.2 g/dL (6.4-8.2); Sodium Level 140 mmol/L (136-145)
[2020-01-27] MEDS: ENOXAPARIN 40 MG/0.4 ML SQ SCH (08:18)
[2020-01-27] MEDS: VALSARTAN 160 MG TAB PO SCH (08:18)
[2020-01-27] MEDS: HYDROCODONE/APAP 7.5/325 MG TAB PO PRN ×2 (09:12→17:58)
--- NOTE | 2020-01-27 12:00 | P.PN ---
Subjective Date of Service: 01/27/20 Primary Care Provider: Dr. Orozco Chief Complaint: Right hip fracture Subjective: Improving, Doing well Physical Examination - Vital Signs Temperature: 98.7 F Blood Pressure: 115/87 Pulse: 63 Respirations: 16 Pulse Ox (%): 98 - Physical Exam General: Alert, In no apparent distress, Oriented x3, Cooperative HEENT: Atraumatic Neck: Supple Respiratory: Clear to auscultation bilaterally, Normal air movement Cardiovascular: Normal pulses, Regular rate/rhythm Gastrointestinal: Normal bowel sounds, Soft and benign, Non-distended Musculoskeletal: No tenderness, No warmth Integumentary: No erythema, No warmth, No cyanosis Neurological: Normal speech, Normal strength at 5/5 x4 extr, Normal tone, Normal affect - Studies Medications List Reviewed: Yes Assessment & Plan Discharge Plan: Other (Inpatient) Physician Review Additional Text: Impression: Fall with Right femur fracture s/p repair HTN Depression Plan: Fall with Right femur fracture s/p repair: Continue physical therapy. Patient has done well. Orthopedics recommends inpatient rehab. Will discuss with social psychologist to see if she will approve. Otherwise patient can likely go home with outpatient physical therapy. Encourage incentive spirometer. HTN: Continue current medication Depression: Restart home medication Time Spent Managing Pts Care (In Minutes): 55
--- NOTE | 2020-01-27 13:39 | P.PN ---
Subjective Date of Service: 01/27/20 Primary Care Provider: Dr. Orozco Chief Complaint: s/p CRPP right hip pain controlled Physical Examination - Vital Signs Temperature: 98.7 F Blood Pressure: 115/87 Pulse: 63 Respirations: 16 Pulse Ox (%): 98 - Physical Exam General: Alert, In no apparent distress Musculoskeletal: Other (RLE: dressing with minimal sanguinous drainage; no signifiant swelling right thigh; NVI distally) - Studies Medications List Reviewed: Yes Assessment And Plan - Plan Nori is a 59 yo female s/p CRPP R hip POD#1 -d/c ofelia today -PT to mobilize; TDWB RLE -lovenox for DVT prophylaxis -depending on how she does with PT will determine for safe discharge home vs IPR
[2020-01-27] MEDS ORDERED: HOME MED 1 EA UNK (Escitalopram Oxalate [Lexapro] 5 MG) PO SCH (21:00)
[2020-01-28 08:40] VITALS: O2SAT 94
[2020-01-28] MEDS: HYDROCODONE/APAP 7.5/325 MG TAB PO PRN (08:41)
[2020-01-28] MEDS: ENOXAPARIN 40 MG/0.4 ML SQ SCH (08:42)
[2020-01-28] MEDS: VALSARTAN 160 MG TAB PO SCH (08:42)
--- NOTE | 2020-01-28 11:29 | P.PN ---
Subjective Date of Service: 01/28/20 Primary Care Provider: Dr. Orozco Chief Complaint: s/p CRPP right hip Subjective: No new changes, Improving <Wild Mares Filed: 01/28/20 11:25> Date of Service: 01/28/20 Subjective: Other (Patient seen and evaluated today. Agree with plan of care.) <Harpal Charles - Last Filed: 01/28/20 13:44> Review of Systems General: Unremarkable Eyes: Unremarkable ENT: Unremarkable Respiratory: Unremarkable Cardiovascular: Unremarkable Gastrointestinal: Unremarkable Genitourinary: Unremarkable Musculoskeletal: Other (Right hip pain) Integumentary: Unremarkable Neurological: Unremarkable Lymphatics: Unremarkable <Wild Mares Filed: 01/28/20 11:25> Physical Examination - Vital Signs Temperature: 97.4 F Blood Pressure: 134/70 Pulse: 65 Respirations: 18 Pulse Ox (%): 94 - Physical Exam General: Alert, In no apparent distress, Oriented x3 HEENT: Atraumatic, Normocephalic Neck: Supple Respiratory: Clear to auscultation bilaterally, Normal air movement Cardiovascular: No edema Capillary refill: <2 Seconds Gastrointestinal: Normal bowel sounds - Studies Medications List Reviewed: Yes <Wild Mares Filed: 01/28/20 11:25> Assessment & Plan Discharge Plan: Other (Inpatient rehab) Plan to discharge in: 24 Hours Physician Review Additional Text: Impression: Fall with Right femur fracture s/p repair HTN Depression Plan: Fall with Right femur fracture s/p repair: Continue physical therapy. Patient has done well. Orthopedics recommends inpatient rehab. Will discuss with social media editor to see if she will approve. Otherwise patient can likely go home with outpatient physical therapy. Encourage incentive spirometer. Social service is working with insurance company to determine if patient can do inpatient rehab up stairs. Otherwise patient will be discharged with outpatient physical therapy. HTN: Continue current medication Depression: Continue home medication Time Spent Managing Pts Care (In Minutes): 55 <Wild Mares Filed: 01/28/20 11:25> Physician Review Additional Text: Patient seen and evaluated. Agree with nurse practitioner plan of care. Patient to be discharged home. Please see discharge summary. <Harpal Charles - Last Filed: 01/28/20 13:44>
--- NOTE | 2020-01-28 13:39 | P.DS ---
Admission Date: 01/25/20 Discharge Date: 01/28/20 Primary Care Provider: Dr. Orozco Disposition: DC HOME/HOME HEALTH CARE Discharge Condition: GOOD Reason for Admission: s/p CRPP right hip Consultations: Orthopedics-Dr. Skaggs Procedures: Xray: CLINICAL HISTORY: Right hip pain FINDINGS: Mildly to moderately displaced subcapital femoral fracture. No additional fracture seen Surgery: Date of Procedure: 01/26/2020 Surgeon: Kelvin Skaggs MD Preoperative Diagnosis: Right femoral neck fracture. Postoperative Diagnosis: Right femoral neck fracture. Procedure Performed: Surgical fixation of right femoral neck fracture with percutaneous screw fixation. Anesthesia: General LMA. Fluids: Per Anesthesia. Estimated Blood Loss: 20 cc. Implants: Three 6.5 mm cannulated screws. Medical problem list: Fall with Right femur fracture s/p surgical fixation of right femoral neck fracture with percutaneous screw fixation HTN Depression Brief History of Present Illness: 59-year-old female presented after a mechanical fall. Patient found to have right femur fracture. Hospital Course: Patient presented with a fall. Patient found to have right femoral neck fracture. Patient seen and evaluated by orthopedics. Patient required surgical intervention. Surgical fixation of right femoral neck fracture with percutaneous screw fixation was done. Patient did well with physical therapy. Patient was evaluated for inpatient rehab. She was denied. Patient prefers to go home with home health and physical therapy. This was discussed with orthopedics. At discharge she is without significant pain. She has significantly improved. At discharge she will continue with home health and physical therapy. She will continue with tramadol 50 mg 1 pill 3 times a day as needed for pain and Zanaflex 2 mg 1 pill twice daily as needed for muscle spasm. Patient will be provided Lovenox subcu 40 mg daily for DVT prophylaxis, she will take this for the next 14 days. Patient will follow up with orthopedics as directed. Postop care will be provided. Continue orthopedic recommendations at this time. Patient with hypertension. This has remained stable. At discharge she will continue with Olmesartan hydrochlorothiazide 40/12.5 mg daily. Further adjustment and monitoring can be done by her PCP. Patient with depression. At discharge she will continue with Lexapro 5 mg daily. Vital Signs/Physical Exam: Temp Pulse Resp BP Pulse Ox 97.4 F 65 18 134/70 94 01/28/20 11:29 01/28/20 11:29 01/28/20 11:29 01/28/20 11:29 01/28/20 11:29 General: Alert, In no apparent distress, Oriented x3, Cooperative HEENT: Atraumatic Neck: Supple Respiratory: Clear to auscultation bilaterally, Normal air movement Cardiovascular: Normal pulses, Regular rate/rhythm Gastrointestinal: Normal bowel sounds, Soft and benign, Non-distended, No masses, No rebound, No guarding Musculoskeletal: No erythema, No tenderness, No warmth Integumentary: No erythema, No warmth, No cyanosis Neurological: Normal speech, Normal strength at 5/5 x4 extr, Normal tone, Normal affect Laboratory Data at Discharge: WBC 13.3 K/uL (4.3-10.9) H 01/27/20 05:32 Hgb 13.6 g/dL (12.0-15.0) 01/27/20 05:32 Hct 40.6 % (36.0-45.0) 01/27/20 05:32 Plt Count 177 K/uL (152-406) 01/27/20 05:32 PT 11.4 SECONDS (9.5-12.5) 01/25/20 18:02 INR 0.97 01/25/20 18:02 APTT 30.5 SECONDS (24.3-36.9) 01/25/20 18:02 Sodium 140 mmol/L (136-145) 01/27/20 05:32 Potassium 4.0 mmol/L (3.5-5.1) 01/27/20 05:32 BUN 12 mg/dL (7-18) 01/27/20 05:32 Creatinine 0.57 mg/dL (0.55-1.3) 01/27/20 05:32 Glucose 105 mg/dL (74-106) 01/27/20 05:32 Magnesium 2.1 mg/dL (1.8-2.4) 01/27/20 05:32 Total Bilirubin 0.5 mg/dL (0.2-1.0) 01/27/20 05:32 AST 9 U/L (15-37) L 01/27/20 05:32 ALT 20 U/L (12-78) 01/27/20 05:32 Alkaline Phosphatase 49 U/L (45-117) 01/27/20 05:32 Home Medications: Escitalopram Oxalate [Lexapro] 5 mg PO BEDTIME 01/25/20 Olmesartan/Hydrochlorothiazide [Olmesartan-Hctz 40-12.5 mg Tab] 1 tab PO DAILY 01/25/20 Docusate [Colace Cap*] 200 mg PO DAILY PRN #15 cap 01/28/20 Enoxaparin Sodium [Lovenox 40 MG INJ*] 40 mg SQ DAILY #14 syr 01/28/20 Tizanidine HCl [Zanaflex] 2 mg PO BID PRN #6 capsule 01/28/20 traMADol HCL [Ultram*] 50 mg PO TID PRN #15 tab 01/28/20 New Medications: Docusate [Colace Cap*] 200 mg PO DAILY PRN #15 cap PRN Reason: Constipation Enoxaparin Sodium [Lovenox 40 MG INJ*] 40 mg SQ DAILY #14 syr traMADol HCL [Ultram*] 50 mg PO TID PRN #15 tab PRN Reason: Pain Scale 5-7 (Moderate) Tizanidine HCl [Zanaflex] 2 mg PO BID PRN #6 capsule PRN Reason: Muscle Spasms Patient Discharge Instructions: 1. Recommend follow up with PCP in 1 week to follow up this hospitalization. 2. Patient presented with a fall. Patient found to have right femoral neck fracture. Patient seen and evaluated by orthopedics. Patient required surgical intervention. Surgical fixation of ri ght femoral neck fracture with percutaneous screw fixation was done. Patient did well with physical therapy. Patient was evaluated for inpatient rehab. She was denied. Patient prefers to go home with home health and physical therapy. This was discussed with orthopedics. At discharge she is without significant pain. She has significantly improved. At discharge she will continue with home health and physical therapy. She will continue with tramadol 50 mg 1 pill 3 times a day as needed for pain and Zanaflex 2 mg 1 pill twice daily as needed for muscle spasm. Patient will be provided Lovenox subcu 40 mg daily for DVT prophylaxis, she will take this for the next 14 days. Patient will follow up with orthopedics as directed. Postop care will be provided. Continue orthopedic recommendations at this time. 3. Patient with hypertension. This has remained stable. At discharge she will continue with Olmesartan hydrochlorothiazide 40/12.5 mg daily. Further adjustment and monitoring can be done by her PCP. 4. Patient with depression. At discharge she will continue with Lexapro 5 mg daily. Diet: AHA Activity: Ad demarco Time spent managing pt's care (in minutes): 55
[2020-01-28 14:11] VITALS: BP 128/65; TEMP 98.8
== END 2020-01-28 14:45 | disposition home health service (06) | DRG 482 ==
LOC: ER 16:00 → ERHOLD 17:54 → 2ND 19:40
PROVIDERS: ADMIT Family Medicine; ATTEND Family Medicine
PROC: 0QS634Z Reposition Right Upper Femur with Internal Fixation Device, Percutaneous Approach (ICD-10-PCS; principal; 2020-01-26 10:30)
DX: S72.011A Unspecified intracapsular fracture of right femur, initial encounter for closed fracture (principal); I10 Essential (primary) hypertension; F32.9 Major depressive disorder, single episode, unspecified; W01.0XXA Fall on same level from slipping, tripping and stumbling without subsequent striking against object, initial encounter
CPT/HCPCS: 36415; 51702; 71045; 72170; 73530; 80048; 80053; 80076; 81003; 81015; 83735; 84132; 84484; 85014; 85018; 85025; 85610; 85730; 93005; 96374; 97116; 97161; 97530; 99285; J0690; J1170; J1650; J2270; J2405; J3475; J7030; J7120

== ENCOUNTER 2023-04-29 07:56 | Day surgery (SDC) | payer OTHER ==
[2023-04-27 09:30] LABS: Absolute Lymphocytes (CBC) 1.5 K/uL (0.7-4.9); Lymphocytes % 23.2 % (15.3-44.8); MCV 88.4 fL (80-100); MPV 7.6 fL (7.6-11.3); Platelets 184 thou/uL (152-406); RBC Red Blood Cell Count 5.09 M/uL (3.86-4.86)
[2023-04-27 09:35] LABS: Protime INR 1.02
--- NOTE | 2023-04-27 11:13 | RAD REPORT ---
EXAM DESCRIPTION: Kandi Quigley (2 Views)04/27/2023 9:07 am CLINICAL HISTORY: Preop for carpal tunnel surgery COMPARISON: 2019 FINDINGS: The lungs appear clear of acute infiltrate. The heart is normal size IMPRESSION: No acute abnormalities displayed
--- NOTE | 2023-04-28 14:14 | EKG ---
Test Date: 2023-04-27 Test Time: 08:49:17 Flush Tester: YANA MEASUREMENT RESULTS: Intervals: Rate: 62 PA: 150 QRSD: 90 QT: 406 QTc: 412 [place]: P: 65 PA: 150 QRS: 64 T: 74 INTERPRETIVE STATEMENTS: Normal sinus rhythm Normal ECG Compared to ECG 01/25/2020 17:52:58 Sinus arrhythmia no longer present ST (T wave) deviation no longer present Electronically Signed On 04-28-23 14:11:26 CDT by Sumeet Cohen
[2023-04-29] MEDS ORDERED: CEFAZOLIN SODIUM 1 GM/VIAL ONE (08:22)
[2023-04-29] MEDS ORDERED: propofoL 200 MG/20 ML VIAL IV ONE ×2 (08:23→09:28)
[2023-04-29] MEDS ORDERED: MIDAZOLAM HCL 2 MG/2 ML INJ ONE (08:24)
[2023-04-29] MEDS ORDERED: FENTANYL CITR 100 MCG/2 ML ONE (08:24)
[2023-04-29] MEDS ORDERED: dexAMETHasone 10 MG/ML VIAL ONE (08:25)
[2023-04-29] MEDS ORDERED: LIDOCAINE 2% MPF 5 ML VIAL ONE (08:25)
[2023-04-29] MEDS ORDERED: ONDANSETRON 4 MG/2 ML VIAL ONE (08:25)
[2023-04-29] MEDS: Ringers Lactate 1,000 ML IV ONE ×2 (08:29→09:47)
[2023-04-29] MEDS ORDERED: BUPIVACAINE 0.25% PF 10 ML VIAL ONE (08:37)
[2023-04-29] MEDS ORDERED: NS 0.9% VIAL 30 ML ONE (09:26)
[2023-04-29] MEDS ORDERED: LIDOCAINE 1% MPF 30 ML VIAL ONE (09:27)
[2023-04-29] MEDS: BUPIVACAINE 0.25% PF 10 ML VIAL ONE ×2 (09:46→09:57)
--- NOTE | 2023-04-29 10:09 | P.BOP ---
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
--- NOTE | 2023-04-29 10:11 | P.OP ---
Preoperative diagnosis: Right carpal tunnel syndrome Postoperative diagnosis: Same Primary procedure: right open carpal tunnel release Anesthesia: Efren block Estimated blood loss: 2 cc Specimen: None Findings: see dictation Operative Technique: Reason for Surgery: Nori had physical exam findings as well as EMG findings consistent with right carpal tunnel syndrome. I discussed with the patient at length risks and benefits associated with the procedure. They expressed understanding and elected proceed with operative treatment. Description of Procedure: After informed consent was obtained the patient was identified in the preoperative holding area. The right upper extremity was marked patient. Patient then brought back to the operating room transferred the operative table in supine fashion. The right upper extremity was exsanguinated and the tourniquet was inflated to 300 mmHg. and placed under [place] block anesthesia. Approximately a 3 cm longitudinal incision was made just ulnar to the thenar crease. Dissection was then taken down to the palmar fascia which was identified. A Sodus elevator was then placed just deep to the palmar fascia to protect the median nerve at all times. A 15 blade was then used to release the palmar fascia and transverse carpal ligament leaving the Sodus elevator to protect the nerve at all times. Any remaining fascial bands were then released using a blunt tip Metzenbaum scissor. The tips were him superficially to protect the median nerve at all times. The wound was then irrigated thoroughly with normal saline. The skin was approximated using a 5-0 Prolene. Sterile dressings were applied and patient was awakened and transferred to PACU in stable condition. Postoperative plan: The patient will follow-up in 1 to 2 weeks for wound check and suture removal. They may begin to work on range of motion exercises at this time. Complications: None Implants: None Fluids & blood products: Per anesthesia record; tourniquet time 30 minutes at 300 mmHg Transferred to: Recovery Room Condition: Good
[2023-04-29 11:31] VITALS: TEMP 97.4; O2SAT 99
[2023-04-29 11:33] VITALS: BP 155/78
== END 2023-04-29 11:10 | disposition home or self-care (01) ==
LOC: OR 07:56
PROVIDERS: ATTEND Orthopaedic Surgery Sports Medicine
PROC: 01N50ZZ Release Median Nerve, Open Approach (ICD-10-PCS; principal; 2023-04-29 09:00)
DX: G56.01 Carpal tunnel syndrome, right upper limb (principal)
CPT/HCPCS: 93005; 85025; 80048; 36415; 85610; 85730; 71046; 64721; A4216; J2704 ×2; J2001 ×2; J2250; J3010; J1100; J2405; J7120; J0690

== ENCOUNTER 2025-05-02 10:28 | Emergency (ER) | payer OTHER ==
[2025-05-02 11:29] LABS: Absolute Lymphocytes (CBC) 2.0 K/uL (0.7-4.9); Hematocrit 45.6 % (36.0-45.0); Hemoglobin 15.5 g/dL (12.0-15.0); MCH 30.2 pg (27.0-35.0); MCHC 34.1 g/dL (32.0-36.0); MCV 88.5 fL (80-100); MPV 7.3 fL (7.6-11.3); Nucleated RBC Absolute Count 0.0 (0-0); Nucleated Red Blood Cells % 0.1 % (0-0); RBC Red Blood Cell Count 5.15 M/uL (3.86-4.86); White Blood Count 6.60 thou/uL (4.3-10.9)
[2025-05-02 11:50] LABS: ALT/SGPT 31.0 U/L (13-56); AST/SGOT 18.0 U/L (15-37); Albumin 3.4 g/dL (3.4-5.0); Albumin/Globulin Ratio 1.1 (1.1-1.8); Alkaline Phosphatase 49.0 U/L (45-117); Anion Gap 6.8 mEq/L (5.0-15.0); BUN Blood Urea Nitrogen 12.0 mg/dL (7-18); Globulin 3.1 g/dL (2.3-3.5); Glucose Level 114.0 mg/dL (74-106); NT PRO-BNP 359.0 pg/mL (<125); Potassium 3.8 mEq/L (3.5-5.1); Troponin High Sensitivity 5.5 pg/mL (<58.9)
--- NOTE | 2025-05-02 12:11 | RAD REPORT ---
Procedure: Chest Single View HISTORY: Chest pain COMPARISON: none FINDINGS: The lungs appear clear of acute infiltrate. No significant pleural effusion noted. The heart is normal size. IMPRESSION: No acute abnormality is displayed.
--- NOTE | 2025-05-02 12:40 | EDPHYS ---
Physician Documentation [facility] Name: Nori Pelletier Age: 65 yrs Sex: Female : 1960 Arrival Date: 05/02/2025 Time: 10:28 Bed 2 Private MD: ED Physician Carlos Arellano HPI: 05/02 10:59 This 65 yrs old Female presents to ER via Ambulatory with complaints of dr5 Shortness Of Breath, High Blood Pressure, LIGHT HEADED. 10:59 The patient has shortness of breath at rest. Onset: The symptoms/episode began/occurred dr5 1 week(s) ago. Patient is a 65-year-old female with history of hypertension, hyperlipidemia, breast cancer in remission, and cardiac cath 1 year ago coming in for shortness of breath at rest intermittently for the past week. Patient denies any new bilateral lower extremity swelling. Patient also reports that she stopped taking Plavix last month. Patient denies chest pain, nausea, vomiting, diarrhea, abdominal pain. Patient reports that she is going to trip this weekend and wants to make sure that is okay before she goes.. Historical: - Allergies: 10:39 PENICILLINS; aa5 10:39 Demerol; aa5 - PMHx: 10:39 Hypertension; Hypercholesterolemia; Breast Cancer; aa5 - PSHx: 10:39 heart stent; Hip- R femur; aa5 10:41 livia carpal tunnel; aa5 - Immunization history:: Adult Immunizations unknown. - Infectious Disease History:: Denies. - Social history:: Smoking status: Patient denies any tobacco usage or history of. ROS: 10:59 Constitutional: as per hpi dr5 Exam: 10:59 Constitutional: This is a well developed, well nourished patient who is awake, alert, dr5 and in no acute distress. Head/Face: Normocephalic, atraumatic. Eyes: Pupils equal round and reactive to light, extra-ocular motions intact. Lids and lashes normal. Conjunctiva and sclera are non-icteric and not injected. Cornea within normal limits. Periorbital areas with no swelling, redness, or edema. Neck: Trachea midline, no thyromegaly or masses palpated, and no cervical lymphadenopathy. Supple, full range of motion without nuchal rigidity, or vertebral point tenderness. No Meningismus. Chest/axilla: Normal chest wall appearance and motion. Nontender with no deformity. No lesions are appreciated. Cardiovascular: Regular rate and rhythm with a normal S1 and S2. Normal PMI, no JVD. No pulse deficits. Respiratory: Lungs have equal breath sounds bilaterally. No rales, rhonchi or wheezes noted. No increased work of breathing, no retractions or nasal flaring. Patient is speaking in full sentences without shortness of breath. Lungs listened to in triage with clear auscultation. Back: No spinal tenderness. No costovertebral tenderness. Full range of motion. Skin: Warm, dry with normal turgor. Normal color with no rashes, no lesions, and no evidence of cellulitis. MS/ Extremity: Pulses equal, no cyanosis. Neurovascular intact. Full, normal range of motion. Neuro: Awake and alert, GCS 15, oriented to person, place, time, and situation. Cranial nerves II-XII grossly intact. Motor strength 5/5 in all extremities. Sensory grossly intact. Cerebellar exam normal. Normal gait. Vital Signs: 10:39 BP 166 / 79; Pulse 47; Resp 18 S; Temp 98.5(O); Pulse Ox 98% on R/A; Weight 73.48 kg aa5 (R); Height 5 ft. 6 in. (R); Pain 0/10; 11:36 BP 158 / 99; Pulse 48; Resp 18; Pulse Ox 99% on R/A; ph 12:45 BP 164 / 83; Pulse 48; Resp 19; Temp 97.9; Pulse Ox 98% on R/A; ph 10:39 Body Mass Index 26.15 (73.48 kg, 167.64 cm) aa5 10:39 Pain Scale: Adult aa5 MDM: 10:34 Medical Screening Exam initiated dr5 16:03 Differential diagnosis: Anemia asthma, Bronchitis pneumonia, New onset congestive heart dr5 failure. Antibiotic administration: Not indicated, the patient does not have an appreciated infiltrate. Data interpreted: compliance monitor: rate is 48 beats/min, rhythm is sinus bradycardia. Data reviewed: vital signs, nurses notes, lab test result(s), cardiac enzymes, troponin i, CBC, white blood cell count, hemoglobin, hematocrit, platelets, electrolytes, sodium, potassium, chloride, serum bicarbonate, BUN, creatinine, serum glucose, BNP. Data reviewed: I have discussed the patient's presentation/case with the attending Emergency Department Physician;. Historians other than the Patient: Daughter/Son: Daughter at bedside. Care significantly affected by the following chronic conditions: Hypertension, Cancer, Hyperlipidemia. Care significantly affected by the following Social Determinants of Health: Poor access to healthcare and/or lack of insurance, Poor access to transportation, Problems related to employment. Scoring Tools HEART Score: History: ECG: Age: Risk Factors: Troponin: Total Score = 3. Counseling: I had a detailed discussion with the patient and/or guardian regarding the historical points, exam findings, and any diagnostic results supporting the discharge/admit diagnosis, the presence of at least one elevated blood pressure reading (>120/80) during this emergency department visit, lab results, radiology results, the need for outpatient follow up, for definitive care, a research hydrologist, to return to the emergency department if symptoms worsen or persist or if there are any questions or concerns that arise at home. Medication response: Normal saline. Response to treatment: the patient's symptoms have markedly improved after treatment. Special discussion: Based on the patient's history, exam, and Dx evaluation, there is no indication for emergent intervention or inpatient Tx. It is understood by the patient/guardian that if the Sx's persist or worsen they need to return immediately for re-evaluation. I discussed with the patient/guardian in detail that at this point there is no indication for admission to the hospital. It is understood, however, that if the symptoms persist or worsen the patient needs to return immediately for re-evaluation. Based on the history and exam findings, there is no indication for further emergent testing or inpatient evaluation. I discussed with the patient/guardian the need to see the primary care provider for further evaluation of the symptoms. ED course: Patient reports she is feeling better. Explained all lab results and chest x-ray results to patient. I printed out all labs and came to patient to take with her to research hydrologist. All questions answered. Strict ER precautions given. Patient reports that she will see research hydrologist in the next 1 to 2 days.. 05/02 10:45 Order name: CBC with Diff; Complete Time: 11:40 dr5 05/02 10:45 Order name: NT PRO-BNP; Complete Time: 11:58 05/02 10:45 Order name: Troponin HS; Complete Time: 11:58 05/02 10:45 Order name: CMP; Complete Time: 11:58 dr5 05/02 10:45 Order name: XRAY Chest (1 view); Complete Time: 12:12 dr5 05/02 10:45 Order name: Cardiac monitoring; Complete Time: 11:40 dr5 05/02 10:45 Order name: EKG - Nurse/Tech; Complete Time: 11:40 dr5 05/02 10:45 Order name: IV Saline Lock; Complete Time: :40 05/02 10:45 Order name: Labs collected and sent; Complete Time: :05/02 10:45 Order name: O2 Per Protocol; Complete Time: 11:40 05/02 10:45 Order name: O2 Sat Monitoring; Complete Time: :40 dr5 EC:31 Rate is 48 beats/min. Rhythm is regular. QRS [place] is Normal. NV interval is normal at dr5 170 msec. QRS interval is normal at 96 msec. QT interval is normal at 472 msec. Clinical impression: Sinus bradycardia. Administered Medications: 11:46 Not Given (Duplicate Order): ns 0.9% (30 ml/kg) 30 ml/kg IV at bolus once; Sepsis dr5 Protocol; to be given as a bolus over 90 minutes Disposition: 19:23 I was immediately available on-site in the Emergency Department for consultation in the ms3 care of the patient. Disposition Summary: 05/02/25 12:39 Discharge Ordered Notes: Location: Home dr5 Condition: Stable dr5 Diagnosis - Essential (primary) hypertension dr5 - Shortness of breath dr5 - Other specified abnormal findings of blood chemistry - Elevated PRO-BNP dr5 Followup: dr5 - With: Emergency Department - When: As needed - Reason: Worsening of condition Followup: dr5 - With: Private Physician - When: 1 - 2 days - Reason: Recheck today's complaints, Continuance of care, Re-evaluation by your physician Discharge Instructions: - Discharge Summary Sheet dr5 - Hypertension, Adult dr5 - Shortness of Breath, Adult dr5 Forms: - Medication Reconciliation Form dr5 - Patient Portal Instructions dr5 - Leadership Thank You Letter dr5 Signatures: Dispatcher [employer] Carolee Delgado RN RN aa5 Kathie Ramirez RN RN ph Eileen, Carlos, DO DO ms3 Hussein Hernandez, TELMA-C [employer]-5
--- NOTE | 2025-05-02 12:40 | ER ---
Nurse's Notes [facility] Name: Nori Pelletier Age: 65 yrs Sex: Female : 1960 Arrival Date: 05/02/2025 Time: 10:28 Bed 2 Private MD: Diagnosis: Essential (primary) hypertension;Shortness of breath;Other specified abnormal findings of blood chemistry-Elevated PRO-BNP Presentation: 05/02 10:39 Chief complaint: Chief complaint: Patient states: "I've been feeling really winded and aa5 short of breath and I noticed my heart rate has been 47". Pt reports symptoms began 1 week ago. 10:39 Acuity: SACHIN 3 aa5 10:39 Method Of Arrival: Ambulatory aa5 10:39 Coronavirus screen: shortness of breath. Ebola Screen: Patient denies travel to an [facility] Ebola-affected area in the 21 days before illness onset. Initial Sepsis Screen: Does the patient meet any 2 criteria? No. Patient's initial sepsis screen is negative. Does the patient have a suspected source of infection? No. Patient's initial sepsis screen is negative. Risk Assessment: Do you want to hurt yourself or someone else? Patient reports no desire to harm self or others. Onset of symptoms was April 2025. Triage Assessment: 11:38 Respiratory: ph Historical: - Allergies: 10:39 PENICILLINS; aa5 10:39 Demerol; aa5 - PMHx: 10:39 Hypertension; Hypercholesterolemia; Breast Cancer; aa5 - PSHx: 10:39 heart stent; Hip- R femur; aa5 10:41 livia carpal tunnel; aa5 - Immunization history:: Adult Immunizations unknown. - Infectious Disease History:: Denies. - Social history:: Smoking status: Patient denies any tobacco usage or history of. Screenin:21 [facility] ED Fall Risk Assessment (Adult) History of falling in the last 3 months, ph including since admission No falls in past 3 months (0 pts) Confusion or Disorientation No (0 pts) Intoxicated or Sedated No (0 pts) Impaired Gait No (0 pts) Mobility Assist Device Used No (0 pt) Altered Elimination No (0 pt) Score/Fall Risk Level 0 - 2 = Low Risk Oriented to surroundings, Maintained a safe environment, Hourly rounding (assess needs \\T\\ fall precautionary measures) done. Abuse screen: Denies threats or abuse. Denies injuries from another. Nutritional screening: No deficits noted. Tuberculosis screening: No symptoms or risk factors identified. Assessment: 11:36 General: Appears in no apparent distress. comfortable, well groomed, Behavior is calm, ph cooperative, appropriate for age. Pain: Denies pain. Neuro: Level of Consciousness is awake, alert, obeys commands, Oriented to person, place, time, situation. Cardiovascular: Reports fatigue, shortness of breath, Rhythm is sinus bradycardia. Respiratory: Reports shortness of breath at rest on exertion Airway is patent Respiratory effort is even, unlabored, Respiratory pattern is regular, symmetrical, Breath sounds are clear bilaterally. Derm: Skin is pink, warm \\T\\ dry. Vital Signs: 10:39 BP 166 / 79; Pulse 47; Resp 18 S; Temp 98.5(O); Pulse Ox 98% on R/A; Weight 73.48 kg aa5 (R); Height 5 ft. 6 in. (R); Pain 0/10; 11:36 BP 158 / 99; Pulse 48; Resp 18; Pulse Ox 99% on R/A; ph 12:45 BP 164 / 83; Pulse 48; Resp 19; Temp 97.9; Pulse Ox 98% on R/A; ph 10:39 Body Mass Index 26.15 (73.48 kg, 167.64 cm) aa5 10:39 Pain Scale: Adult aa5 Vitals: 11:36 Cardiac Rhythm Assessment Sinus jasmyn. ph ED Course: 10:30 Patient arrived in ED. cj3 10:34 [facility]C [facility]. dr5 10:34 Carlos Arellano DO is Attending Physician. dr5 10:39 Arm band placed on. aa5 10:43 Triage completed. aa5 11:09 Zaid Cabrera, DEANDRE is Primary Nurse. bp 11:21 Patient has correct armband on for positive identification. Bed in low position. Call ph light in reach. Side rails up X 1. paper stacker on. Pulse ox on. NIBP on. Door closed. Noise minimized. Warm blanket given. 11:37 EKG done, by ED staff, reviewed by Hussein COOPER. Inserted saline lock: 22 gauge ph in right antecubital area, using aseptic technique. Blood collected. Flushed with 10 mL NS. 12:05 XRAY Chest (1 view) In Process Unspecified. EDMS 13:14 No provider procedures requiring assistance completed. IV discontinued, intact, ph bleeding controlled, No redness/swelling at site. Pressure dressing applied. Administered Medications: 11:46 Not Given (Duplicate Order): ns 0.9% (30 ml/kg) 30 ml/kg IV at bolus once; Sepsis dr5 Protocol; to be given as a bolus over 90 minutes Medication: 11:37 VIS not applicable for this client. ph Outcome: 12:39 Discharge ordered by MD. dr5 13:14 Discharged to home ambulatory, with family, ph 13:14 Condition: good 13:14 Discharge instructions given to patient, Instructed on discharge instructions, follow up and referral plans. Demonstrated understanding of instructions, follow-up care, 13:14 Patient left the ED. ph Signatures: Dispatcher [employer] EDMS Carolee Hummel RN RN aa5 Kathie Ramirez RN RN Zaid Cabrera RN Hussein Rivera, PROTECTION MGR-C PROTECTION MGR-5 Ciara Ortiz cj3 Corrections: (The following items were deleted from the chart) 10:43 10:39 Chief complaint: aa5 aa5 10:42 Coronavirus screen: shortness of breath, aa aa5 10:42 Ebola Screen: Patient denies travel to an Ebola-affected area in the 21 days aa5 before illness onset. aa5 : 10:42 Initial Sepsis Screen: Does the patient meet any 2 criteria? No. Patient's aa5 initial sepsis screen is negative. Does the patient have a suspected source of infection? No. Patient's initial sepsis screen is negative. aa5 : 10:42 Risk Assessment: Do you want to hurt yourself or someone else? Patient reports no aa5 desire to harm self or others. aa5 : 10:42 Onset of symptoms was April 2025 aa5 aa5 10:42 Method Of Arrival: Ambulatory aa5 10:42 Acuity: SACHIN 3 aa5 aa5
[2025-05-02 13:41] VITALS: BP 164/83; TEMP 97.9; O2SAT 98
== END 2025-05-02 13:14 | disposition home or self-care (01) ==
LOC: ER 10:28
DX: I10 Essential (primary) hypertension (principal); R79.89 Other specified abnormal findings of blood chemistry; Z95.818 Presence of other cardiac implants and grafts
CPT/HCPCS: 36415; 71045; 80053; 83880; 84484; 85025; 99284